=== PATIENT | male | born 1970 | race Two or more races ===

== ENCOUNTER 2016-08-08 07:17 | Day surgery (SDC) | payer OTHER ==
[~2016-08-08] VITALS: Ht 165.1 cm; Wt 66.0 kg
[~2016-08-08 07:17] MED LIST: DENIES
[2016-08-08] MEDS ORDERED: KETAMINE 10 MG/ML, 20ML ONE (07:44)
[2016-08-08] MEDS ORDERED: MIDAZOLAM 1 MG/ML, 5ML ONE ×2 (07:44→08:21)
[2016-08-08] MEDS ORDERED: LACTATED RINGERS 1,000 ML IV SCH (07:46)
[2016-08-08 07:50] VITALS: BP 144/81
[2016-08-08] MEDS ORDERED: FENTANYL PF 100 MCG/2ML IV PRN (08:00)
[2016-08-08] MEDS ORDERED: EPHEDRINE 50 MG/ML, 1ML IVPush PRN (08:00)
[2016-08-08] MEDS ORDERED: METOPROLOL 1 MG/ML, 5ML IV PRN (08:00)
[2016-08-08] MEDS ORDERED: PROMETHAZINE 25 MG/ML, 1ML IV PRN (08:00)
[2016-08-08] MEDS ORDERED: LABETALOL 5MG/ML, 20ML IV PRN (08:00)
[2016-08-08] MEDS ORDERED: MEPERIDINE/PF 25MG/0.5ML IVPush PRN (08:00)
[2016-08-08] MEDS ORDERED: hydrALAzine 20 MG/ML, 1ML IV PRN (08:00)
[2016-08-08] MEDS ORDERED: ACETAMINOPHEN 325 MG TABLET PO PRN (08:00)
[2016-08-08] MEDS ORDERED: HYDROmorphone 1 MG/ML, 1ML IV PRN (08:00)
[2016-08-08] MEDS ORDERED: METOCLOPRAMIDE 5 MG/ML, 2ML IV PRN (08:00)
[2016-08-08] MEDS ORDERED: ONDANSETRON 2MG/ML, 2ML IVPush PRN (08:00)
[2016-08-08] MEDS ORDERED: MIDAZOLAM 1 MG/ML, 2ML IV PRN (08:00)
[2016-08-08] MEDS ORDERED: FENTANYL PF 100 MCG/2ML ONE (08:21)
== END 2016-08-08 10:25 | disposition home or self-care (01) ==
LOC: OUT 07:17
PROVIDERS: ATTEND Surgery
DX: Z12.11 Encounter for screening for malignant neoplasm of colon (principal); K64.8 Other hemorrhoids
CPT/HCPCS: 45378; J2250; J3010; J7120